=== PATIENT | male | born 1960 | race Caucasian/White ===

== ENCOUNTER 2021-06-23 04:30 | Inpatient (IN) | payer OTHER ==
[~2021-06-23] VITALS: Ht 187.9 cm; Wt 85.8 kg
[2021-06-23 04:39] VITALS: BP 187/104
[2021-06-23 04:43] VITALS: BP 196/98
[2021-06-23 05:30] VITALS: BP 187/109
[2021-06-23 06:03] LABS: BASO % 0.3 % (0.0-1.0); EOS # 0.1 10*3/uL (0.0-0.4); EOS % 0.6 % (1.0-4.0); HEMATOCRIT 37.9 % (42.0-52.0); MEAN CELL VOLUME 82.6 fl (80.0-94.0); MEAN CORPUSCULAR HGB 26.4 pg (27.0-31.0); MEAN CORPUSCULAR HGB CONC 31.9 g/dl (33.0-37.0); MEAN PLATELET VOLUME 10.1 fl (9.6-12.3); MONO # 0.7 10*3/uL (0.1-1.0); MONO % 7.5 % (3.0-9.0); NEUT # 7.9 10*3/uL (2.3-7.9); NEUT % 81.3 % (47.0-73.0); PLATELET COUNT AUTOMATED 446 10*3/uL (130-400); RED BLOOD COUNT 4.59 10*6/uL (4.50-5.90); RED CELL DISTRI WIDTH 13.3 % (0-14.5); WHITE BLOOD COUNT 9.7 10*3/uL (4.8-10.8)
[2021-06-23 06:12] LABS: ALBUMIN 2.8 gm/dl (3.1-4.5); ALKALINE PHOSPHATASE 122 U/L (45-117); BUN 9 mg/dl (7-24); CHLORIDE 99 mmol/L (98-107); CREATININE 0.56 mg/dL (0.70-1.30); POTASSIUM 3.2 mmol/L (3.5-5.1); SGOT/AST 4 IU/L (3-35); SGPT/ALT 6 U/L (12-78); SODIUM 133 mmol/L (136-145); TOTAL PROTEIN 8.4 gm/dL (6.4-8.2)
[2021-06-23 06:15] VITALS: BP 198/104
[2021-06-23 06:20] LABS: TROPONIN I < 0.015 ng/ml (<0.045)
[2021-06-23 08:10] VITALS: BP 177/102
[2021-06-23 20:33] VITALS: BP 151/88
[2021-06-24 00:27] VITALS: BP 157/91
[2021-06-24 05:42] LABS: ALBUMIN 2.4 gm/dl (3.1-4.5); BUN 9 mg/dl (7-24); CHLORIDE 101 mmol/L (98-107); POTASSIUM 3.6 mmol/L (3.5-5.1); SODIUM 133 mmol/L (136-145)
[2021-06-24 05:51] LABS: ALKALINE PHOSPHATASE 103 U/L (45-117); CHOLESTEROL 127 mg/dL (<200); CREATININE 0.57 mg/dL (0.70-1.30); LDL CHOLESTEROL 73 mg/dL (9-159); SGOT/AST 4 IU/L (3-35); TOTAL PROTEIN 7.6 gm/dL (6.4-8.2); TRIGLYCERIDES 85 mg/dl (<150)
[2021-06-24 06:08] LABS: SGPT/ALT < 6 U/L (12-78)
[2021-06-24 06:11] LABS: BASO % 0.4 % (0.0-1.0); EOS # 0.1 10*3/uL (0.0-0.4); HEMATOCRIT 35.2 % (42.0-52.0); LYMPH # 1.3 10*3/uL (1.3-4.4); LYMPH % 16.3 % (27.0-41.0); MEAN CORPUSCULAR HGB 26.7 pg (27.0-31.0); MEAN CORPUSCULAR HGB CONC 31.8 g/dl (33.0-37.0); MEAN PLATELET VOLUME 10.6 fl (9.6-12.3); MONO # 0.7 10*3/uL (0.1-1.0); MONO % 9.1 % (3.0-9.0); NEUT # 5.9 10*3/uL (2.3-7.9); NEUT % 72.8 % (47.0-73.0); PLATELET COUNT AUTOMATED 411 10*3/uL (130-400); RED BLOOD COUNT 4.19 10*6/uL (4.50-5.90); RED CELL DISTRI WIDTH 13.4 % (0-14.5)
[2021-06-24 09:26] VITALS: BP 153/83
[2021-06-24 12:00] VITALS: BP 153/79
[2021-06-24 17:45] VITALS: BP 177/98
[2021-06-24] MEDS ORDERED: ASPIRIN ADULT L81 M1 PO (17:57)
[2021-06-24 18:03] VITALS: BP 180/100
[2021-06-24 20:00] VITALS: BP 180/92
[2021-06-25] VITALS: BP 170/78
[2021-06-25 06:29] VITALS: BP 168/66
[2021-06-25 08:00] VITALS: BP 159/94
[2021-06-25] MEDS ORDERED: Lantus SC (11:05)
[2021-06-25] MEDS ORDERED: DOXYCYCLINE100 M3 PO (11:05)
[2021-06-25] MEDS ORDERED: LISINOPRIL20 MG PO (11:05)
[2021-06-25] MEDS ORDERED: Humalog SQ (11:05)
[2021-06-25] MEDS ORDERED: GLUCOPHAGE500 MG PO (11:05)
[2021-06-25] MEDS ORDERED: NATURE'S BLEND F1 MG PO (11:05)
[2021-06-25 12:00] VITALS: BP 175/88
[2021-06-25 16:00] VITALS: BP 168/89
== END 2021-06-25 19:33 | disposition home or self-care (01) | DRG 720 ==
LOC: ED 04:30 → 5E 07:32 → EDHOLD 07:32 → 5E 06-24 17:34
PROVIDERS: Emergency Medicine; Internal Medicine; ADMIT Family Medicine; ATTEND Family Medicine
DX: A41.9 Sepsis, unspecified organism (principal); J18.9 Pneumonia, unspecified organism; E44.1 Mild protein-calorie malnutrition; E87.1 Hypo-osmolality and hyponatremia; R07.9 Chest pain, unspecified; D47.3 Essential (hemorrhagic) thrombocythemia; K21.9 Gastro-esophageal reflux disease without esophagitis; D64.9 Anemia, unspecified; D72.810 Lymphocytopenia; E87.6 Hypokalemia; R74.8 Abnormal levels of other serum enzymes; I10 Essential (primary) hypertension; E11.65 Type 2 diabetes mellitus with hyperglycemia; Z91.14 Patient's other noncompliance with medication regimen; Z68.24 Body mass index [BMI] 24.0-24.9, adult